=== PATIENT | male | born 1970 | race Caucasian/White ===

== ENCOUNTER 2019-06-22 20:36 | Emergency (ER) | payer BC ==
[~2019-06-22] VITALS: Ht 185.4 cm; Wt 113.4 kg
[2019-06-22] MEDS ORDERED: ALLOPURINOL300 MG PO (20:55)
== END 2019-06-22 22:43 | disposition home or self-care (01) ==
LOC: ER 20:36
DX: I16.1 Hypertensive emergency (principal); I10 Essential (primary) hypertension; G44.209 Tension-type headache, unspecified, not intractable; J32.8 Other chronic sinusitis